=== PATIENT | male | born 1980 | race Caucasian/White ===

== ENCOUNTER 2018-10-01 07:21 | Day surgery (SDC) | payer BC ==
[2018-10-01] VITALS (10 sets, daily range): BP systolic 116–130; BP diastolic 71–84
[~2018-10-01] VITALS: Ht 167.6 cm; Wt 87.3 kg
[~2018-10-01 07:21] MED LIST: BUPR150T14 PO; CITA40TA11 PO; LORA10TA7 PO; PANT40TA3 PO
[2018-10-01] MEDS ORDERED: ceFAZolin 2 GM/50 ML NS 50 ML IV ONE (07:30)
--- OUTSIDE RECORDS SUMMARY | 2018-10-01 07:31 | XMS REPORT ---
Author Author [facility]IN FRANKLIN [facility] [place] Address [address] [place] [address] Care Team Providers Care Saas Architect Name Role Phone XIN FRANKLIN Unavailable PROBLEMS Type Condition ICD9-CM Code LCO78-JH Code Onset Dates Condition Status SNOMED Code Problem Low back pain M54.5 Active 221648583 Problem Other chronic pain G89.29 Active 60956407 Problem Irritable bowel syndrome with diarrhea K58.0 Active 055828546 Problem Sigmoid diverticulosis K57.30 Active 764514206 Problem Internal hemorrhoid, bleeding K64.8 Active 65961680 Problem Allergic conjunctivitis, bilateral H10.13 Active 185956935 Problem Depression, unspecified depression type F32.9 Active 60144712 Problem Hypertriglyceridemia E78.1 Active 992278878 Problem Snoring R06.83 Active 06578447 Problem Excessive daytime sleepiness G47.19 Active [id number] ALLERGIES No Information ENCOUNTERS Encounter Location Date Diagnosis [facility] [place] [address] [facility] [id number] [place] [id number] Feb, [facility] [place] [address] [facility] [id number] [place] [id number] Jan, Irritable bowel syndrome with diarrhea K58.0 and Internal hemorrhoid, bleeding K64.8 [facility] [place] [address] [facility] [id number] [place] [id number] Dec, Irritable bowel syndrome with diarrhea K58.0 [facility] [place] [address] [facility] [id number] [place] [id number] Sep, [facility] [place] [address] [facility] [id number] [place] [id number] Sep, Irritable bowel syndrome with diarrhea K58.0 ; Low back pain M54.5 and Excessive daytime sleepiness G47.19 [facility] [place] [address] [facility] [id number] [place] [id number] Sep, [facility] [address] [facility] [id number] [place] [id number] Aug, [facility] [place] [address] [facility] [id number] [place] [id number] Jul, Excessive daytime sleepiness G47.19 [facility] [place] [address] [id number] [place] [id number] Jul, Excessive daytime sleepiness G47.19 [facility] [place] [address] [place], [place] [id number] [place] [id number] Jul, Allergic conjunctivitis, bilateral H10.13 and Snoring R06.83 [facility] [place] [address] [place], [place] [id number] [id number] June, Snoring R06.83 and Excessive daytime sleepiness G47.19 [facility] [place] [address] [place], [place] [id number] [place] [id number] May, Irritable bowel syndrome with diarrhea K58.0 and Low back pain M54.5 [facility] [place] [address] [place], [place] [id number] [place] [id number] Mar, [facility] [place] [address] [place] [id number] [place] [id number] Feb, Irritable bowel syndrome with diarrhea K58.0 [facility] [place] [address] [place] [id number] [id number] Jan, Irritable bowel syndrome with diarrhea K58.0 ; Low back pain M54.5 ; Depression, unspecified depression type F32.9 and Hypertriglyceridemia E78.1 [facility] [place] [address] [place], [place] [id number] [place] [id number] Dec, [facility] [place] [address] [place] [id number] [id number] Dec, Pain of right thumb M79.644 IMMUNIZATIONS No Known Immunizations SOCIAL HISTORY Never Assessed REASON FOR VISIT Rx request PLAN OF CARE VITAL SIGNS MEDICATIONS Unknown Medications RESULTS No Results PROCEDURES No Known procedures INSTRUCTIONS MEDICATIONS ADMINISTERED No Known Medications MEDICAL (GENERAL) HISTORY Type Description Date Medical History irritable bowel syndrome Medical History depression Medical History MRSA neck Medical History Kidney stones Surgical History rotator cuff tear repair 2007 Surgical History septoplasty 2008 Surgical History tonsillectomy 2011 Surgical History colonoscopy 02/2016 Hospitalization History Hospitalization for surgery only
--- OUTSIDE RECORDS SUMMARY | 2018-10-01 07:31 | XMS REPORT ---
Author Author Husam Rudd Organization [facility] Address [address] [place], [place] [address] Care Team Providers Care Interventional Radiology Technologist Name Role Phone Husam Rudd PCP Unavailable Allergies and Adverse Reactions Name Reaction Notes No known allergies Plan of Treatment Not available. Medications Active Name Start Date Estimated Completion Date SIG Comments dicyclomine 20 mg oral tablet take 1 tablet by oral route 2 times a day Probiotic 10 billion cell oral capsule take 1 capsule by oral route 2 times a day citalopram 40 mg oral tablet take 1 tablet (40 mg) by oral route once daily bupropion HCl 75 mg oral tablet take 1 tablet by oral route gabapentin 300 mg oral capsule take 1 capsule by oral route cyclobenzaprine 10 mg oral tablet take 1 tablet (10 mg) by oral route 2 times per day Men's Multi-Vitamin oral tablet take 1 tablet by oral route amoxicillin 500 mg oral capsule 01/18/2016 01/28/2016 take 2 capsules by oral route every 12 hours for 10 days Problem List Description Status Onset Irritable bowel syndrome Active Depression Active Vital Signs Date Time BP-Sys(mm[Hg] BP-Nichelle(mm[Hg]) HR(bpm) RR(rpm) Temp WT HT HC BMI BSA BMI Percentile O2 Sat(%) 01/18/2016 8:35:00 AM 122 mmHg 78 mmHg 94 bpm 16 rpm 97.5 F 181.375 lbs 66 in 29.27 kg/m2 1.96 m2 98 % Social History Name Description Comments Tobacco Never smoker Alcohol Never History of Procedures Not available. Results Summary Not available. History Of Immunizations Not available. History of Past Illness Name Date of Onset Comments Depression Irritable bowel syndrome Lymphadenopathy of right cervical region Jan 18 2016 8:38AM Sinus infection Jan 18 2016 8:38AM Cough Jan 18 2016 8:38AM Sinus pressure Jan 18 2016 8:38AM Payers Insurance Name Company Name Plan Name Plan Number Policy Number Policy Group Number Start Date [employer]BS [facility] [id number] N/A History of Encounters Visit Date Visit Type Provider 01/18/2016 Office visit Husam Rudd APRN
--- OUTSIDE RECORDS SUMMARY | 2018-10-01 07:31 | XMS REPORT ---
Author Author XIN FRANKLIN [facility] [place] Address [address] [place] [address] Care Team Providers Care Brake Repairer Railroad Name Role Phone XIN FRANKLIN Unavailable PROBLEMS Type Condition ICD9-CM Code WMA13-MC Code Onset Dates Condition Status SNOMED Code Problem Low back pain M54.5 Active 999565768 Problem Other chronic pain G89.29 Active 80988729 Problem Irritable bowel syndrome with diarrhea K58.0 Active 556300645 Problem Sigmoid diverticulosis K57.30 Active 260640766 Problem Internal hemorrhoid, bleeding K64.8 Active 35341381 Problem Allergic conjunctivitis, bilateral H10.13 Active 936153979 Problem Depression, unspecified depression type F32.9 Active 93116887 Problem Hypertriglyceridemia E78.1 Active 023811359 Problem Snoring R06.83 Active 65603231 Problem Excessive daytime sleepiness G47.19 Active [id number] ALLERGIES No Information ENCOUNTERS Encounter Location Date Diagnosis [facility] [place] [address] [facility] [id number] [place] [id number] Feb, [facility] [place] [address] [facility] [id number] [place] [id number] Jan, Irritable bowel syndrome with diarrhea K58.0 and Internal hemorrhoid, bleeding K64.8 [facility] [place] [address] [facility] [id number] [place] [id number] Dec, Irritable bowel syndrome with diarrhea K58.0 [facility] [place] [address] [facility] [id number] [place] [id number] Sep, [facility] [place] [address] [facility] [id number] [place] [address] Sep, Irritable bowel syndrome with diarrhea K58.0 ; Low back pain M54.5 and Excessive daytime sleepiness G47.19 [facility] [place] [address] [facility] [id number] [place] [id number] Sep, [facility] [address] [facility] [id number] [place] [id number] Aug, [facility] [place] [address] [facility] [id number] [place] [id number] Jul, Excessive daytime sleepiness G47.19 [facility] [place] [address] [id number] [place] [id number] Jul, Excessive daytime sleepiness G47.19 [facility] [place] [address] [place], [place] [id number] [place] [id number] Jul, Allergic conjunctivitis, bilateral H10.13 and Snoring R06.83 [facility] [place] [address] [place], [place] [id number] [place] [id number] June, Snoring R06.83 and Excessive daytime sleepiness G47.19 [facility] [place] [address] [place], [place] [id number] [place] [id number] May, Irritable bowel syndrome with diarrhea K58.0 and Low back pain M54.5 [facility] [place] [address] [place], [place] [id number] [place] [id number] Mar, [facility] [place] [address] [place] [id number] [place] [id number] Feb, Irritable bowel syndrome with diarrhea K58.0 [facility] [place] [address] [place], [place] [id number] [place] [address] Jan, Irritable bowel syndrome with diarrhea K58.0 ; Low back pain M54.5 ; Depression, unspecified depression type F32.9 and Hypertriglyceridemia E78.1 [facility] [place] [address] [place], [place] [id number] [place] [id number] Dec, [facility] [place] [address] [place] [id number] [place] [id number] Dec, Pain of right thumb M79.644 IMMUNIZATIONS No Known Immunizations SOCIAL HISTORY Never Assessed REASON FOR VISIT Requests return call PLAN OF CARE VITAL SIGNS MEDICATIONS Unknown [...]
--- OUTSIDE RECORDS SUMMARY | 2018-10-01 07:31 | XMS REPORT ---
Author Author [facility]IN FRANKLIN [facility] [place] Address [address] [place] [address] Care Team Providers Care Wood Floor Refinisher Name Role Phone XIN FRANKLIN Unavailable PROBLEMS Type Condition ICD9-CM Code YWO86-UV Code Onset Dates Condition Status SNOMED Code Problem Low back pain M54.5 Active 678598278 Problem Other chronic pain G89.29 Active 61040509 Problem Irritable bowel syndrome with diarrhea K58.0 Active 738457598 Problem Sigmoid diverticulosis K57.30 Active 757083092 Problem Internal hemorrhoid, bleeding K64.8 Active 25902463 Problem Allergic conjunctivitis, bilateral H10.13 Active 277522380 Problem Depression, unspecified depression type F32.9 Active 60913826 Problem Hypertriglyceridemia E78.1 Active 756624010 Problem Snoring R06.83 Active 00959683 Problem Excessive daytime sleepiness G47.19 Active 134308297193 ALLERGIES No Known Allergies ENCOUNTERS Encounter Location Date Diagnosis [facility] [place] [address] [facility] [id number] [place] [id number] Feb, [facility] [place] [address] [id number] [place] [id number] Jan, Irritable bowel syndrome with diarrhea K58.0 and Internal hemorrhoid, bleeding K64.8 [facility] [place] [address] [facility] [id number] [place] [id number] Dec, Irritable bowel syndrome with diarrhea K58.0 [facility] [place] [address] [facility] [id number] [place] [id number] Sep, [facility] [place] [address] [id number] [place] [id number] Sep, Irritable bowel syndrome with diarrhea K58.0 ; Low back pain M54.5 and Excessive daytime sleepiness G47.19 [facility] [place] [address] [facility] [id number] [place] [id number] Sep, [place] [address] [id number] [place] [id number] Aug, [facility] [place] [address] [id number] [place] [id number] Jul, Excessive daytime sleepiness G47.19 [facility] [place] [address] [facility] [address] [id number] [place] [id number] Jul, Excessive daytime sleepiness G47.19 [facility] [place] [address] [id number] [place] [id number] Jul, Allergic conjunctivitis, bilateral H10.13 and Snoring R06.83 [facility] [place] [address] [id number] [place] [address] June, Snoring R06.83 and Excessive daytime sleepiness G47.19 [facility] [place] [address] [id number] [place] [id number] May, Irritable bowel syndrome with diarrhea K58.0 and Low back pain M54.5 [facility] [place] [address] [id number] [place] [id number] Mar, [facility] [place] [id number] [place] [id number] Feb, Irritable bowel syndrome with diarrhea K58.0 [facility] [place] [address]00565100[facility] [place] [id number] Jan, Irritable bowel syndrome with diarrhea K58.0 ; Low back pain M54.5 ; Depression, unspecified depression type F32.9 and Hypertriglyceridemia E78.1 [facility] [place] [address] [id number] [place] [address] Dec, [facility] [place] [address] [id number] [place] [id number] Dec, Pain of right thumb M79.644 IMMUNIZATIONS No Known Immunizations SOCIAL HISTORY Never Assessed REASON FOR VISIT IBS flare up since [facility] [place] PLAN OF CARE Activity Details Follow Up prn Reason:acute VITAL SIGNS Height 66 in 2017-01-30 Weight 180.0 lbs 2017-01-30 Temperature 98.1 degrees Fahrenheit 2017-01-30 Heart Rate 90 bpm 2017-01-30 Respiratory Rate 18 2017-01-30 BMI 29.05 kg/m2 2017-01-30 Blood pressure systolic 120 mmHg 2017-01-30 Blood pressure diastolic 72 mmHg 2017-01-30 MEDICATIONS Medication Instructions Dosage Frequency Start Date End Date Duration Status Celecoxib 100 mg Orally Twice a day 1 capsule with food 12h Dec, June, 30 day(s) Active Citalopram Hydrobromide 40 MG Orally Once a day 1 tablet 24h Active BuPROPion HCl 150 MG Orally 1 1 Active Probiotic - Active Viberzi 100 mg Orally Twice a day 1 tablet with food 12h Feb, 30 days Active RESULTS Name Result Date Reference Range HEMOCCULT (IN HOUSE) 2017-01-30 RESULTS positive Control pos Lot # [id number] Exp date 07/2017 PROCEDURES Procedure Date Ordered Result Body Site TEST FOR BLOOD, FECES Jan 30, 2017 INSTRUCTIONS MEDICATIONS ADMINISTERED No Known Medications MEDICAL (GENERAL) HISTORY Type Description Date Medical History irritable bowel syndrome Medical History depression Medical History MRSA neck Medical History Kidney stones Surgical History rotator cuff tear repair 2007 Surgical History septoplasty 2008 Surgical History tonsillectomy 2011 Surgical History colonoscopy 02/2016 Hospitalization History Hospitalization for surgery only
--- OUTSIDE RECORDS SUMMARY | 2018-10-01 07:32 | XMS REPORT ---
Author Author [facility]IN FRANKLIN [facility] [place] Address [address] [place] [address] Care Team Providers Care Chief Enterprise Architect Name Role Phone XIN FRANKLIN Unavailable PROBLEMS Type Condition ICD9-CM Code JLY15-QU Code Onset Dates Condition Status SNOMED Code Problem Low back pain M54.5 Active 217570214 Problem Other chronic pain G89.29 Active 28633710 Problem Irritable bowel syndrome with diarrhea K58.0 Active 306416754 Problem Sigmoid diverticulosis K57.30 Active 612773231 Problem Internal hemorrhoid, bleeding K64.8 Active 45715123 Problem Allergic conjunctivitis, bilateral H10.13 Active 412213716 Problem Depression, unspecified depression type F32.9 Active 67355806 Problem Hypertriglyceridemia E78.1 Active 376636711 Problem Snoring R06.83 Active 36208449 Problem Excessive daytime sleepiness G47.19 Active 999766122954 ALLERGIES No Information ENCOUNTERS Encounter Location Date Diagnosis [facility] [place] [address] [facility] [id number] [place] [id number] Feb, [facility] [place] [address] [facility] [id number] [place] [id number] Jan, Irritable bowel syndrome with diarrhea K58.0 and Internal hemorrhoid, bleeding K64.8 [facility] [place] [address] [facility] [id number] [place] [id number] Dec, Irritable bowel syndrome with diarrhea K58.0 [facility] [place] [address] [facility] [id number] [place] [id number] Sep, [facility] [place] [address] [facility] [id number] [place] [address] Sep, Irritable bowel syndrome with diarrhea K58.0 ; Low back pain M54.5 and Excessive daytime sleepiness G47.19 [facility] [place] [address] [facility] [id number] [place] [address] Sep, [facility] [address] [facility] [id number] [place] [id number] Aug, [facility] [place] [address] [id number] [place] [id number] Jul, Excessive daytime sleepiness G47.19 [facility] [place] [address] [id number] [place] [id number] Jul, Excessive daytime sleepiness G47.19 [facility] [place] [address] [id number] [place] [address] Jul, Allergic conjunctivitis, bilateral H10.13 and Snoring R06.83 [facility] [place] [address] [id number] [place] [address] June, Snoring R06.83 and Excessive daytime sleepiness G47.19 [facility] [place] [address] [place], [place] [id number] [place] [address] May, Irritable bowel syndrome with diarrhea K58.0 and Low back pain M54.5 [facility] [place] [address] [place], [place] [id number] [id number] Mar, [facility] [place] [facility] [address]00565100[facility] [address] Feb, Irritable bowel syndrome with diarrhea K58.0 [facility] [place] [address] [place], [place] [id number] [address] Jan, Irritable bowel syndrome with diarrhea K58.0 ; Low back pain M54.5 ; Depression, unspecified depression type F32.9 and Hypertriglyceridemia E78.1 [facility] [place] [address] [place], [place] [id number] [place] [id number] Dec, [facility] [place] [address] [place], [place] [id number] [id number] Dec, Pain of right thumb M79.644 IMMUNIZATIONS No Known Immunizations SOCIAL HISTORY Never Assessed REASON FOR VISIT Lab (walk-in). BEV Bob PLAN OF CARE VITAL SIGNS MEDICATIONS Unknown Medications RESULTS No Results PROCEDURES Procedure Date Ordered Result Body Site ROUTINE VENIPUNCTURE 2016-08-18 N/A ASSAY THYROID STIM HORMONE August 18, 2016 COMPREHEN METABOLIC PANEL August 18, 2016 INSTRUCTIONS MEDICATIONS ADMINISTERED No Known Medications MEDICAL (GENERAL) HISTORY Type Description Date Medical History irritable bowel syndrome Medical History depression Medical History MRSA neck Medical History Kidney stones Surgical History rotator cuff tear repair 2007 Surgical History septoplasty 2008 Surgical History tonsillectomy 2011 Surgical History colonoscopy 02/2016 Hospitalization History Hospitalization for surgery only
--- OUTSIDE RECORDS SUMMARY | 2018-10-01 07:32 | XMS REPORT ---
Author Author [facility]IN FRANKLIN [facility] [place] Address [address] [place] [address] Care Team Providers Care Associate Counsel Name Role Phone XIN FRANKLIN Unavailable PROBLEMS Type Condition ICD9-CM Code ZQY19-DC Code Onset Dates Condition Status SNOMED Code Problem Low back pain M54.5 Active 660371540 Problem Other chronic pain G89.29 Active 67883191 Problem Irritable bowel syndrome with diarrhea K58.0 Active 993089416 Problem Sigmoid diverticulosis K57.30 Active 429078429 Problem Internal hemorrhoid, bleeding K64.8 Active 84227774 Problem Allergic conjunctivitis, bilateral H10.13 Active 304835655 Problem Depression, unspecified depression type F32.9 Active 02394410 Problem Hypertriglyceridemia E78.1 Active 693607711 Problem Snoring R06.83 Active 18450232 Problem Excessive daytime sleepiness G47.19 Active 258281548416 ALLERGIES No Information ENCOUNTERS Encounter Location Date Diagnosis [facility] [place] [address] [facility] [id number] [place] [id number] Feb, [facility] [place] [address] [facility] [id number] [place], [place] [id number] Jan, Irritable bowel syndrome with diarrhea K58.0 and Internal hemorrhoid, bleeding K64.8 [facility] [place] [address] [facility] [id number] [place] [id number] Dec, Irritable bowel syndrome with diarrhea K58.0 [facility] [place] [address] [facility] [id number] [place] [id number] Sep, [facility] [place] [address] [facility] [id number] [place] [address] Sep, Irritable bowel syndrome with diarrhea K58.0 ; Low back pain M54.5 and Excessive daytime sleepiness G47.19 [facility] [place] [address] [facility] [id number] [place] [id number] Sep, [facility] [address] [facility] [id number] [place] [address] Aug, [facility] [place] [address] [facility] [id number] [place] [id number] Jul, Excessive daytime sleepiness G47.19 [facility] [place] [address] [id number] [place] [id number] Jul, Excessive daytime sleepiness G47.19 [facility] [place] [address] [id number] [place] [address] Jul, Allergic conjunctivitis, bilateral H10.13 and Snoring R06.83 [facility] [place] [address] [id number] [place] [id number] June, Snoring R06.83 and Excessive daytime sleepiness G47.19 [facility] [place] [address] [id number] [place] [id number] May, Irritable bowel syndrome with diarrhea K58.0 and Low back pain M54.5 [facility] [place] [address] [place] [id number] [id number] Mar, [facility] [place] [address] [id number] [facility] [id number] Feb, Irritable bowel syndrome with diarrhea K58.0 [facility] [place] [address] [place] [id number] [id number] Jan, Irritable bowel syndrome with diarrhea K58.0 ; Low back pain M54.5 ; Depression, unspecified depression type F32.9 and Hypertriglyceridemia E78.1 [facility] [place] [address] [place], [place] [id number] [place] [id number] Dec, [facility] [place] [address] [id number] [place] [id number] Dec, Pain of right thumb M79.644 IMMUNIZATIONS No Known Immunizations SOCIAL HISTORY Never Assessed REASON FOR VISIT Celebrex/Baclofen PLAN OF CARE VITAL SIGNS MEDICATIONS Medication Instructions Dosage Frequency Start Date End Date Duration Status Celebrex 100 mg Orally twice a day 1 capsule with food 12h Sep, Nov, 30 day(s) Active Baclofen 10 mg Orally every 8 hrs as needed 1 tablet with food or milk Sep, Nov, 30 day(s) Active RESULTS No Results PROCEDURES No Known procedures [...]
--- OUTSIDE RECORDS SUMMARY | 2018-10-01 07:32 | XMS REPORT ---
Author Author [facility] FRANKLIN [facility] [place] Address [address] [place] [address] Care Team Providers Care Welding Manager Name Role Phone XIN FRANKLIN Unavailable PROBLEMS Type Condition ICD9-CM Code WDU84-ZU Code Onset Dates Condition Status SNOMED Code Problem Low back pain M54.5 Active 194375014 Problem Other chronic pain G89.29 Active 47635148 Problem Irritable bowel syndrome with diarrhea K58.0 Active 259309337 Problem Sigmoid diverticulosis K57.30 Active 503087653 Problem Internal hemorrhoid, bleeding K64.8 Active 44230395 Problem Allergic conjunctivitis, bilateral H10.13 Active 564144183 Problem Depression, unspecified depression type F32.9 Active 84988448 Problem Hypertriglyceridemia E78.1 Active 906378086 Problem Snoring R06.83 Active 26139889 Problem Excessive daytime sleepiness G47.19 Active [id number] ALLERGIES No Information ENCOUNTERS Encounter Location Date Diagnosis [facility] [place] [address] [facility] [id number] [place] [id number] Feb, [facility] [place] [address] [facility] [id number] [place] [id number] Jan, Irritable bowel syndrome with diarrhea K58.0 and Internal hemorrhoid, bleeding K64.8 [facility] [place] [address] [facility] [id number] [place] [id number] Dec, Irritable bowel syndrome with diarrhea K58.0 [facility] [place] [address] [facility] [id number] [place] [id number] Sep, [facility] [place] [address] [facility] [id number] [place] [id number] Sep, Irritable bowel syndrome with diarrhea K58.0 ; Low back pain M54.5 and Excessive daytime sleepiness G47.19 [facility] [place] [address] [facility] [id number] [place] [id number] Sep, [facility] [address] [facility] [id number] [place] [id number] Aug, [facility] [place] [address] [facility] [id number] [place] [id number] Jul, Excessive daytime sleepiness G47.19 [facility] [place] [address] [id number] [place] [id number] Jul, Excessive daytime sleepiness G47.19 [facility] [place] [address] [place], [place] [id number] [place] [id number] Jul, Allergic conjunctivitis, bilateral H10.13 and Snoring R06.83 [facility] [place] [address] [place], [place] [id number] [place] [id number] June, Snoring R06.83 and Excessive daytime sleepiness G47.19 [facility] [place] [address] [place], [place] [id number] [place] [id number] May, Irritable bowel syndrome with diarrhea K58.0 and Low back pain M54.5 [facility] [place] [address] [place], [place] [id number] [place] [id number] Mar, [facility] [place] [address] [place] [id number] [place] [id number] Feb, Irritable bowel syndrome with diarrhea K58.0 [facility] [place] [address] [place] [id number] [place] [id number] Jan, Irritable bowel syndrome with diarrhea K58.0 ; Low back pain M54.5 ; Depression, unspecified depression type F32.9 and Hypertriglyceridemia E78.1 [facility] [place] [address] [place] [id number] [place] [id number] Dec, [facility] [place] [address] [place], [place] [id number] [place] [id number] Dec, Pain of right thumb M79.644 IMMUNIZATIONS No Known Immunizations SOCIAL HISTORY Never Assessed REASON FOR VISIT Lab request PLAN OF CARE VITAL SIGNS MEDICATIONS [...]
--- OUTSIDE RECORDS SUMMARY | 2018-10-01 07:32 | XMS REPORT ---
Author Author XIN FRANKLIN Organization [employer] Address Unknown Phone Unavailable Care Team Providers Care Principle Software Engineer Name Role Phone XIN FRANKLIN CP Unavailable Allergies, Adverse Reactions, Alerts Substance Reaction Event Type N.K.D.A. Info Not Available Non Drug Allergy Problems No Known Problems Medications Medication Code System Code Instructions Start Date End Date Status Dosage Probiotic [facility] [address] - Orally not defined Bentyl [facility] [address]-96 30 mg Orally twice a day 1 tablet BuPROPion HCl [facility] [address]-04 75 MG Orally 1 1 Citalopram Hydrobromide [facility] [address]-79 30 mg Orally Once a day 1 tablet Results No Known Results Summary Purpose [employer] Submission
--- OUTSIDE RECORDS SUMMARY | 2018-10-01 07:32 | XMS REPORT | Continuity of Care Document ---
Author Organization Unknown Address Unknown Phone Unavailable Allergies There is no data. Medications There is no data. Problems Date Dx Coded Attending Type Code Diagnosis Diagnosed By 10/26/2016 W H52.13 Myopia, bilateral 10/26/2016 W H52.223 Regular astigmatism, bilateral 10/27/2016 W H52.13 Myopia, bilateral 10/27/2016 W H52.223 Regular astigmatism, bilateral 11/07/2016 W H52.13 Myopia, bilateral 11/08/2016 W H52.13 Myopia, bilateral 11/10/2016 W H52.13 Myopia, bilateral 11/10/2016 W H52.223 Regular astigmatism, bilateral 11/15/2016 W H52.223 Regular astigmatism, bilateral 12/06/2017 W H52.13 Myopia, bilateral 12/06/2017 W H52.223 Regular astigmatism, bilateral 12/12/2017 W H52.13 Myopia, bilateral 12/12/2017 W H52.223 Regular astigmatism, bilateral 12/12/2017 W H52.13 Myopia, bilateral 12/12/2017 W H52.223 Regular astigmatism, bilateral 12/12/2017 W H52.13 Myopia, bilateral 12/12/2017 W H52.223 Regular astigmatism, bilateral 12/12/2017 W H52.13 Myopia, bilateral 12/12/2017 W H52.223 Regular astigmatism, bilateral 12/12/2017 W H52.13 Myopia, bilateral 12/12/2017 W H52.223 Regular astigmatism, bilateral Procedures Code Description [place] [address] EYE EXAM, NEW PATIENT 10/26/2016 42390 REFRACTION 10/26/2016 V2521 Cntct lens hydrophilic toric 10/26/2016 35208 Contact Lens Fittting 11/03/2016 27945 SPECIAL SERVICE/PROC/REPORT 11/10/2016 V2521 Cntct lens hydrophilic toric 12/01/2016 52523 EYE EXAM T TREATMENT 12/06/2017 77339 REFRACTION 12/06/2017 V2521 Cntct lens hydrophilic toric 12/07/2017 Results There is no data. Encounters ACCT No. Visit Date/Time Discharge Status Pt. Type Provider Facility Loc./Unit Complaint [id number] 01/18/2016 09:52:34 01/18/2016 23:59:59 CLS Outpatient Husam Rudd [id number] 12/07/2017 00:00:00 Document Registration [id number] 12/06/2017 13:45:00 Document Registration [id number] 12/01/2016 00:00:00 Document Registration [id number] 11/10/2016 13:00:00 Document Registration [id number] 11/03/2016 14:00:00 Document Registration [id number] 10/26/2016 13:45:00 Document Registration [id number] 10/26/2016 00:00:00 Document Registration [id number] 03/11/2018 17:02:00 03/11/2018 23:59:59 CLS Outpatient [id number] 01/30/2017 11:40:00 01/30/2017 23:59:59 CLS Outpatient XIN FRANKLIN [facility] [place]
--- OUTSIDE RECORDS SUMMARY | 2018-10-01 07:32 | XMS REPORT ---
Author Author XIN FRANKLIN [facility] [place] Address [address] [place] [address] Care Team Providers Care Casino Dealer Name Role Phone XIN FRANKLIN Unavailable PROBLEMS Type Condition ICD9-CM Code BEH47-BA Code Onset Dates Condition Status SNOMED Code Problem Low back pain M54.5 Active 308291313 Problem Other chronic pain G89.29 Active 03580652 Problem Irritable bowel syndrome with diarrhea K58.0 Active 380903396 Problem Sigmoid diverticulosis K57.30 Active 094780478 Problem Internal hemorrhoid, bleeding K64.8 Active 83861440 Problem Allergic conjunctivitis, bilateral H10.13 Active 903472829 Problem Depression, unspecified depression type F32.9 Active 92666351 Problem Hypertriglyceridemia E78.1 Active 896673666 Problem Snoring R06.83 Active 37628933 Problem Excessive daytime sleepiness G47.19 Active 823278268253 ALLERGIES No Information ENCOUNTERS Encounter Location Date Diagnosis [facility] [place] [address] [facility] [id number] [place] [id number] Feb, [facility] [place] [address] [facility] [id number] [place] [phone] Jan, Irritable bowel syndrome with diarrhea K58.0 and Internal hemorrhoid, bleeding K64.8 [facility] [place] [address] [facility] [id number] [place] [id number] Dec, Irritable bowel syndrome with diarrhea K58.0 [facility] [place] [address] [facility] [id number] [place] [id number] Sep, [facility] [place] [address] [facility] [id number] [place] [id number] Sep, Irritable bowel syndrome with diarrhea K58.0 ; Low back pain M54.5 and Excessive daytime sleepiness G47.19 [facility] [place] [address] [facility] [id number] [place] [id number] Sep, [facility] [address] [facility] [id number] [place] [id number] Aug, [facility] [place] [address] [id number] [place] [id number] Jul, Excessive daytime sleepiness G47.19 [facility] [place] [address] [id number] [place] [id number] Jul, Excessive daytime sleepiness G47.19 [facility] [place] [address] [id number] [place] [id number] Jul, Allergic conjunctivitis, bilateral H10.13 and Snoring R06.83 [facility] [place] [address] [id number] [place] [id number] June, Snoring R06.83 and Excessive daytime sleepiness G47.19 [facility] [place] [address] [place], [place] [id number] [place] [id number] May, Irritable bowel syndrome with diarrhea K58.0 and Low back pain M54.5 [facility] [place] [address] [place] [id number] [id number] Mar, [facility] [place] [address]00565100[facility] [id number] Feb, Irritable bowel syndrome with diarrhea K58.0 [facility] [place] [address] [place], [place] [id number] [id number] Jan, Irritable bowel syndrome with diarrhea K58.0 ; Low back pain M54.5 ; Depression, unspecified depression type F32.9 and Hypertriglyceridemia E78.1 [facility] [place] [address] [place] [id number] [place] [id number] Dec, [facility] [place] [address] [place], [place] [id number] [place] [id number] Dec, Pain of right thumb M79.644 IMMUNIZATIONS No Known Immunizations SOCIAL HISTORY Never Assessed REASON FOR VISIT Medication refill request PLAN OF CARE VITAL SIGNS MEDICATIONS Medication Instructions Dosage Frequency Start Date End Date Duration Status Celecoxib 100 mg Orally Twice a day 1 capsule with food 12h Dec, June, 30 day(s) Active Viberzi 100 mg Orally Twice a day 1 tablet with food 12h Feb, 30 days Active RESULTS No Results PROCEDURES No Known [...]
--- OUTSIDE RECORDS SUMMARY | 2018-10-01 07:32 | XMS REPORT ---
Author Author XIN FRANKLIN [facility] [place] Address [address] [place] [address] Care Team Providers Care Director Nicu Name Role Phone XIN FRANKLIN Unavailable PROBLEMS Type Condition ICD9-CM Code NEU04-IY Code Onset Dates Condition Status SNOMED Code Problem Low back pain M54.5 Active 394696200 Problem Other chronic pain G89.29 Active 72857985 Problem Irritable bowel syndrome with diarrhea K58.0 Active 819389394 Problem Sigmoid diverticulosis K57.30 Active 340104170 Problem Internal hemorrhoid, bleeding K64.8 Active 21256094 Problem Allergic conjunctivitis, bilateral H10.13 Active 941542530 Problem Depression, unspecified depression type F32.9 Active 11976653 Problem Hypertriglyceridemia E78.1 Active 086501141 Problem Snoring R06.83 Active 35867092 Problem Excessive daytime sleepiness G47.19 Active 483438495587 ALLERGIES No Information ENCOUNTERS Encounter Location Date Diagnosis [facility] [place] [address] [facility] [id number] [place] [id number] Feb, [facility] [place] [address] [facility] [id number] [place] [id number] Jan, Irritable bowel syndrome with diarrhea K58.0 and Internal hemorrhoid, bleeding K64.8 [facility] [place] [address] [facility] [id number] [place] [id number] Dec, Irritable bowel syndrome with diarrhea K58.0 [facility] [place] [address] [facility] [id number] [place] [id number] Sep, [facility] [place] [address] [facility] [id number] [place] [id number] Sep, Irritable bowel syndrome with diarrhea K58.0 ; Low back pain M54.5 and Excessive daytime sleepiness G47.19 [facility] [place] [address] [facility] [id number] [place] [id number] Sep, [facility] [address] [facility] [id number] [place] [phone] Aug, [facility] [place] [address] [facility] [id number] [place] [id number] Jul, Excessive daytime sleepiness G47.19 [facility] [place] [address] [id number] [place] [id number] Jul, Excessive daytime sleepiness G47.19 [facility] [place] [address] [place], [place] [id number] [place] [id number] Jul, Allergic conjunctivitis, bilateral H10.13 and Snoring R06.83 [facility] [place] [address] [place], [place] [id number] [place] [id number] June, Snoring R06.83 and Excessive daytime sleepiness G47.19 [facility] [place] [address] [place], [place] [id number] [place] [id number] May, Irritable bowel syndrome with diarrhea K58.0 and Low back pain M54.5 [facility] [place] [address] [place], [place] [id number] [place] [id number] Mar, [facility] [place] [address] [place], [place] [id number] [id number] Feb, Irritable bowel syndrome with diarrhea K58.0 [facility] [place] [address] [place], [place] [address]65100[facility] [id number] Jan, Irritable bowel syndrome with diarrhea K58.0 ; Low back pain M54.5 ; Depression, unspecified depression type F32.9 and Hypertriglyceridemia E78.1 [facility] [place] [address] [place], [place] [id number] [place] [id number] Dec, [facility] [place] [address] [place], [place] [id number] [place] [id number] Dec, Pain of right thumb M79.644 IMMUNIZATIONS No Known Immunizations SOCIAL HISTORY Never Assessed REASON FOR VISIT Refill Viberzi PLAN OF CARE VITAL SIGNS MEDICATIONS Medication Instructions Dosage Frequency Start Date End Date Duration Status Viberzi 100 mg Orally Twice a day 1 tablet with food 12h 30 days Active RESULTS No Results PROCEDURES [...]
--- OUTSIDE RECORDS SUMMARY | 2018-10-01 07:32 | XMS REPORT ---
Author Author XIN FRANKLIN [facility] [place] Address [address] [place] [address] Care Team Providers Care Cableman Name Role Phone XIN FRANKLIN Unavailable PROBLEMS Type Condition ICD9-CM Code ENY00-XU Code Onset Dates Condition Status SNOMED Code Problem Sigmoid diverticulosis K57.30 Active 261345974 Problem Irritable bowel syndrome with diarrhea K58.0 Active 671607060 Problem Low back pain M54.5 Active 925161661 Problem Snoring R06.83 Active 76581299 Problem Allergic conjunctivitis, bilateral H10.13 Active 927545901 Problem Hypertriglyceridemia E78.1 Active 462122218 Problem Other chronic pain G89.29 Active 22811705 Problem Excessive daytime sleepiness G47.19 Active 759702856548 Problem Depression, unspecified depression type F32.9 Active 46850471 ALLERGIES Substance Reaction Event Type Date Status N.K.D.A. Unknown Non Drug Allergy Feb, Unknown SOCIAL HISTORY No smoking Hx information available PLAN OF CARE Activity Details Follow Up 4 Weeks Reason:IBS VITAL SIGNS Height 66 in 2016-03-17 Weight 185.2 lbs 2016-03-17 Temperature 98.2 degrees Fahrenheit 2016-03-17 Heart Rate 97 bpm 2016-03-17 Respiratory Rate 18 2016-03-17 BMI 29.89 kg/m2 2016-03-17 Blood pressure systolic 110 mmHg 2016-03-17 Blood pressure diastolic 64 mmHg 2016-03-17 MEDICATIONS Medication Instructions Dosage Frequency Start Date End Date Duration Status Bentyl 20 MG Orally twice a day 1 tablet 12h Active Probiotic - Active BuPROPion HCl 75 MG Orally 1 1 Active Citalopram Hydrobromide 40 MG Orally Once a day 1 tablet 24h Active Viberzi 100 MG Orally Twice a day 1 tablet with food 12h Feb, Mar, 30 days Active RESULTS No Results PROCEDURES Procedure Date Ordered Related Diagnosis Body Site Office Visit, Est Pt., Level 3 Mar 17, 2016 IMMUNIZATIONS No Known Immunizations
--- OUTSIDE RECORDS SUMMARY | 2018-10-01 07:32 | XMS REPORT ---
Author Author NOEMIXIN Organization [facility] [place] Address [address] [place] [address] Care Team Providers Care Dirt Contractor Name Role Phone XIN FRANKLIN Unavailable PROBLEMS Type Condition ICD9-CM Code BTJ46-GN Code Onset Dates Condition Status SNOMED Code Problem Sigmoid diverticulosis K57.30 Active 391162852 Problem Irritable bowel syndrome with diarrhea K58.0 Active 185324192 Problem Low back pain M54.5 Active 345819020 Problem Snoring R06.83 Active 51706692 Problem Allergic conjunctivitis, bilateral H10.13 Active 608643454 Problem Hypertriglyceridemia E78.1 Active 963445754 Problem Other chronic pain G89.29 Active 78801347 Problem Excessive daytime sleepiness G47.19 Active 014201624681 Problem Depression, unspecified depression type F32.9 Active 52999009 ALLERGIES No Information SOCIAL HISTORY Never Assessed PLAN OF CARE VITAL SIGNS MEDICATIONS Unknown Medications RESULTS No Results PROCEDURES No Known procedures IMMUNIZATIONS No Known Immunizations MEDICAL (GENERAL) HISTORY Type Description Date Medical History irritable bowel syndrome Medical History depression Medical History MRSA neck Medical History Kidney stones Surgical History rotator cuff tear repair 2007 Surgical History septoplasty 2008 Surgical History tonsillectomy 2011 Surgical History colonoscopy 02/2016 Hospitalization History Hospitalization for surgery only
--- OUTSIDE RECORDS SUMMARY | 2018-10-01 07:32 | XMS REPORT ---
Author Author XIN FRANKLIN Organization [facility] [place] Address [address] [place] [address] Care Team Providers Care Meteorological Engineer Name Role Phone XIN FRANKLIN Unavailable PROBLEMS Type Condition ICD9-CM Code PIM01-NM Code Onset Dates Condition Status SNOMED Code Problem Irritable bowel syndrome with diarrhea K58.0 Active 885512140 Problem Other chronic pain G89.29 Active 56915483 Problem Hypertriglyceridemia E78.1 Active 663780940 Assessment Irritable bowel syndrome with diarrhea K58.0 Jan, Active 405161803 Problem Low back pain M54.5 Active 141157139 Problem Depression, unspecified depression type F32.9 Active 95137185 ALLERGIES Substance Reaction Event Type Date Status N.K.D.A. Unknown Non Drug Allergy Jan, Unknown SOCIAL HISTORY No smoking Hx information available PLAN OF CARE VITAL SIGNS Height 66 in 2016-02-01 Weight 180 lbs 2016-02-01 Heart Rate 74 bpm 2016-02-01 Respiratory Rate 18 2016-02-01 BMI 29.05 kg/m2 2016-02-01 Blood pressure systolic 118 mmHg 2016-02-01 Blood pressure diastolic 72 mmHg 2016-02-01 MEDICATIONS Medication Instructions Dosage Frequency Start Date End Date Duration Status BuPROPion HCl 75 MG Orally 1 1 Active Bentyl 20 MG Orally twice a day 1 tablet 12h Active Citalopram Hydrobromide 40 MG Orally Once a day 1 tablet 24h Active Probiotic - Active RESULTS No Results PROCEDURES Procedure Date Ordered Related Diagnosis Body Site Office Visit, Est Pt., Level 4 Feb 01, 2016 IMMUNIZATIONS No Known Immunizations
--- OUTSIDE RECORDS SUMMARY | 2018-10-01 07:32 | XMS REPORT ---
Author Author XIN FRANKLIN Organization [employer] Address Unknown Phone Unavailable Care Team Providers Care Patent Prosecution Attorney Name Role Phone XIN FRANKLIN CP Unavailable Allergies, Adverse Reactions, Alerts Substance Reaction Event Type N.K.D.A. Info Not Available Non Drug Allergy Problems Problem Type Condition Code Onset Dates Condition Status Assessment Pain of right thumb M79.644 Active Medications Medication Code System Code Instructions Start Date End Date Status Dosage Naproxen [facility] [address]-22 500 MG Orally every 12 hrs Jan 06, 2015 1 tablet as needed Bentyl [facility] [address]-15 30 mg Orally twice a day 1 tablet Citalopram Hydrobromide [facility] [address]-07 30 mg Orally Once a day 1 tablet Procedures Procedure Coding System Code Date Office Visit, New Pt., Level 3 CPT-4 [id number] Jan 06, 2015 Vital Signs Date/Time: Jan 06, 2015 Temperature 98.2 F Weight 174 lbs Height 66 in BMI 28.08 Index Blood Pressure Diastolic 62 mmHg Blood Pressure Systolic 122 mmHg Cardiac Monitoring Heart Rate 84 bpm Results No Known Results Summary Purpose [employer] Submission
[2018-10-01] MEDS ORDERED: LIDOCAINE PF 2% 5 ML (XYLOCAINE) VIAL ONE (07:38)
[2018-10-01] MEDS ORDERED: ROCURONIUM 10 MG/ML 5 ML SYRINGE IV ONE (07:38)
[2018-10-01] MEDS ORDERED: ONDANSETRON 4 MG/2 ML (SDV) Z0FRAN ONE (07:38)
[2018-10-01] MEDS ORDERED: proPOfol 200 MG/20 ML (DIPRIVAN) VIAL IV ONE (07:38)
[2018-10-01] MEDS ORDERED: MIDAZOLAM 2 MG/2 ML (VERSED) VIAL ONE (07:39)
[2018-10-01] MEDS ORDERED: fentaNYL INJECTION 250 MCG/5 ML AMP ONE (07:40)
[2018-10-01] MEDS ORDERED: CATHETER FLUSH 10 ML SYR IV PRN (07:45)
[2018-10-01] MEDS: LACTATED RINGERS 1,000 ML IV PRN ×3 (07:50→13:10)
[2018-10-01] MEDS ORDERED: PHENYLEPHRINE 0.25% NASAL SPR (NEO-SYNEPHRINE) 15 ML NS ONE ×2 (08:28→08:45)
[2018-10-01] MEDS ORDERED: ROPIVACAINE 5MG/ML 30ML VIAL ONE (08:30)
[2018-10-01] MEDS ORDERED: LIDOCAINE 1% INJ 20 ML 20 ML VIAL ONE (08:30)
--- NOTE | 2018-10-01 08:51 | Progress Note-Pre Operative ---
Pre-Operative Progress Note H&P Reviewed The H&P was reviewed, patient examined and no changes noted. 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
[2018-10-01] MEDS ORDERED: LIDOCAINE/EPI 2% 1:100,00 (XYLOCAINE) 20 ML VIAL ONE (09:14)
[2018-10-01] MEDS ORDERED: DEXAMETHASONE 10 MG/ML (DECADRON) 1 ML VIAL ONE ×2 (10:23→14:25)
[2018-10-01] MEDS ORDERED: PHENYLEPHRINE 100 MCG/ML 10 ML (ANESTHESIA) SYR ONE (10:37)
[2018-10-01] MEDS ORDERED: fentaNYL INJECTION 100 MCG/2 ML AMP ONE (12:36)
[2018-10-01] MEDS ORDERED: ceFAZolin INJECTION 2,000 MG ONE (12:50)
[2018-10-01] MEDS ORDERED: CEFAZOLIN IV ONE (12:56)
[2018-10-01] MEDS ORDERED: SEVOFLURANE (ULTANE) 15 ML INHAL SOLN ONE ×2 (13:57→14:34)
[2018-10-01] MEDS ORDERED: GLYCOPYRROLATE 0.2 MG/ML (ROBINUL) 2 ML VIAL ONE (14:00)
[2018-10-01] MEDS ORDERED: NEOSTIGMINE 3 MG/3 ML VIAL ONE (14:00)
[2018-10-01] MEDS ORDERED: HYDROcodone/APAP 7.5MG-325 MG/15 ML (LORTAB) UDC PO PRN (14:30)
[2018-10-01] MEDS ORDERED: morphine INJ 10 MG/ML 1ML (SYR OR VIAL) IVP ONE (14:45)
[2018-10-01] MEDS ORDERED: HYDROmorphone 2 MG/ML VIAL (DILAUDID) IV ONE (14:45)
[2018-10-01] MEDS ORDERED: NS IV 1000 ML 1,000 ML ONE (15:48)
[2018-10-01] MEDS: ONDANSETRON 4 MG/2 ML (SDV) Z0FRAN IVP PRN ×2 (16:35→21:19)
[2018-10-01] MEDS ORDERED: HYDROmorphone 2 MG/ML VIAL (DILAUDID) IV NR (18:50)
[2018-10-01] MEDS: DEXAMETHASONE 4 MG/ML SDV (DECADRON) IV SCH (20:04)
[2018-10-01] MEDS ORDERED: WATER (STERILE) FOR INJECTION 10 ML ONE (20:29)
[2018-10-01] MEDS ORDERED: ceFAZolin INJECTION 1,000 MG ONE (20:29)
[2018-10-01] MEDS ORDERED: HYDROmorphone 2 MG/ML VIAL (DILAUDID) IV PRN (21:00)
[2018-10-01] MEDS ORDERED: ONDANSETRON 4 MG/2 ML (SDV) Z0FRAN IVP PRN (21:15)
[2018-10-01] MEDS: ceFAZolin INJECTION 1,000 MG in WATER (STERILE) FOR INJECTION 10 ML IV SCH (21:20)
[2018-10-02] VITALS: BP 107/71
[2018-10-02] MEDS: DEXAMETHASONE 4 MG/ML SDV (DECADRON) IV SCH ×2 (02:19→08:23)
[2018-10-02 04:00] VITALS: BP 132/76
[2018-10-02] MEDS ORDERED: WATER (STERILE) FOR INJECTION 10 ML ONE (05:17)
[2018-10-02] MEDS ORDERED: ceFAZolin INJECTION 1,000 MG ONE (05:17)
[2018-10-02] MEDS: ceFAZolin INJECTION 1,000 MG in WATER (STERILE) FOR INJECTION 10 ML IV SCH (05:55)
[2018-10-02 08:25] VITALS: BP 119/66
--- NOTE | 2018-10-02 10:55 | Anesthesia-General Post-Op ---
General Patient Condition Mental Status/LOC: Same as Preop Cardiovascular: Satisfactory Nausea/Vomiting: Absent Respiratory: Satisfactory Pain: Controlled Complications: Absent Post Op Complications Complications None Follow Up Care/Instructions Patient Instructions None needed. Anesthesia/Patient Condition Patient Condition Patient is doing well, no complaints, stable vital signs, no apparent adverse anesthesia problems. Pt states plan for D/C to home once Dr Armando sees him today. OMEGA LR DO Oct 02, 2018 10:55
[2018-10-02 12:45] VITALS: BP 108/69
--- NOTE | 2018-10-25 14:12 | OPERATIVE REPORT ---
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 SURGEON: Dr. Dianne Irving. [employer] TR[employer] DRIVER: Cathleen . PROCEDURE: 1. Advancement with two pieces. 2. Bilateral sagittal split ramus osteotomy. ANESTHESIA: General endotracheal. There were no complications. BLOOD LOSS: 500 mL URINE OUTPUT DURING THE SURGERY: 450 mL. FLUIDS: 2.3 liters of crystalloid. Instrument, needle and sponge count were correct x2. HISTORY OF PRESENT ILLNESS AND INDICATION FOR PROCEDURE: The patient is a 37-year-old essentially healthy white male, who presents upon referral from his nurse examiner, Dr. Irene Schultz, which case he has maxillary constriction as well as anterior open bite. Also, he has mandibular hypoplasia with approximately 8 mm discrepancy in his upper and lower jaws. After speaking extensively with both Dr. Schultz and the patient, it was determined he would best be served by having LeFort 1 two-piece with advancement and impaction in the posterior maxilla and doing a widening of his posterior maxilla as well and then a bilateral sagittal split ramus osteotomy advancement of approximately 10 mm. I had seen the patient for preoperative evaluation and examination. He was also allowed the opportunity to answer questions when he spoke extensively on the fact that during this procedure he can have damage to his inferior alveolar nerve either unilaterally or bilaterally. He was allowed to ask questions, they were answered, then he proceeded to elect to have the surgery at time. DESCRIPTION OF PROCEDURE: The patient was taken to the operating room and placed in the operatory table. The appropriate monitors were placed. Anesthesia was induced via nasotracheal intubation without difficulty. Once this was secured, the surgeon left the room, scrubbed, returned, donned sterile gowns and gloves and then prepped and draped the patient in the usual standard sterile fashion. After this, we deposited local anesthesia and maxillary infiltration as well as bilateral mandibular blocks. We then used a Bovie electrocautery to access the lateral aspect of the mandible and then also used a periosteal elevator to dissect and release the tissue on the medial side of the mandible, identifying the lingula bilaterally on the mandible and the medial aspect. After this, he used a side cutting clark on a rotary handpiece and then made our medial cut stopping at the lateral cortex, continued this down the external oblique line and then made our osteotomy cut through the lateral aspect of the cortex down to the inferior border bilaterally. At this point, we inserted osteotome to make sure our cuts were indeed complete and that mandible was split as planned. We then turned our attention to the maxilla after elevating a full thickness mucoperiosteal flap from the first molar to the first molar. We were then able to elevate a full thickness flap, removing the periosteum back to the maxillary and zygomatic buttress, also along the inferior floor of the nose and the lateral aspect of the nasal passage. We then marked making our reference adams on the anterior maxilla as well as identified we are going to make our osteotomy 25 mm above the first molar cusp and 35 mm above the canine cusp bilaterally. We then excised to the anterior wall of the maxilla and lateral aspect of the nose with a medial wall of the sinus with a reciprocating saw bilaterally, used a nasal septal osteotome to remove the cartilaginous and bony septum. I then used an osteotome to excise back to the tuberosity bilaterally. After this, we were able to mobilize and down fracture the maxilla without difficulty. We then removed any interferences on the medial wall of the sinus, identified the greater palatine artery and removed any interferences there and we were then able to take a round clark and split the maxilla. As it was distracted inferiorly, then used an osteotome to make our incision through the anterior wall or anterior portion of the maxilla between teeth 8 and 9. At this point, we then sectioned the arch wire. After this, we are able to completely mobilize the maxilla and into 2 pieces, we then distracted the maxilla, removed approximately 6 mm of posterior vertical height bilaterally. I then placed the patient into the maxillary splint and wired it together distracting the posterior aspect of the maxilla, then placed the transitional splint, again checked our reference markers to make sure that we had indeed impact the maxilla approximately 6 mm posteriorly and winded approximately 5 mm. After this, we placed him with the intermediate splint, checked our references one more time and placed four plates, two in the posterior and two in the maxillary buttress and two in the piriform rim region with 2 screws in the proximal and 2 in the distal segment. After this was completed, we removed the patient from intermaxillary fixation, removed the transitional splint and then went ahead and completed our sagittal split osteotomies using an osteotome and a periosteal elevator. After this, we were able to visualize the inferior alveolar nerve bilaterally, it was indeed undamaged. At this point, we distracted the distal segment of the mandible, placed it into the final splint, make sure that we had mobilization without any interferences of the proximal segment and then with a transcutaneous technique, we were able to place three screws in the posterior aspect in the retromolar region bilaterally of the mandible. After this, we removed him from intermaxillary fixation and checked to make sure that we had passive occlusion into the splint and then copiously irrigated with normal saline and then closed the intraoral incisions with 4-0 Vicryl in the mandible bilaterally and 4-0 chromic in the maxilla. We did a V-Y closure in the anterior maxilla after doing an alar cinch suture with 2-0 Mersilene. Once this was completed, we then closed the skin with 6-0 Prolene bilaterally. After this, we completed our procedure. We placed a throat pack prior to starting the procedure, this was removed. We then dressed the patient with postoperative dressings. This completed our procedure. He was then allowed to emerge from his general anesthetic. He was then extubated in the operating room and transported to the recovery room and assessed to have stable vital signs, breathing spontaneously with the pulse ox of 99%. Job ID: [id number] DocumentID: [id number] Dictated Date: 10/25/2018 08:43:03 Nutrition Services Associate Date: 10/25/2018 14:12:08 Dictated By: DIANNE IRVING DDS
== END 2018-10-02 13:55 | disposition home or self-care (01) ==
LOC: SDC 07:21 → 4TH 15:30 → SDC 10-02 13:55
PROVIDERS: ATTEND Specialist
DX: M26.03 Mandibular hyperplasia (principal); M26.01 Maxillary hyperplasia; K21.9 Gastro-esophageal reflux disease without esophagitis; G47.33 Obstructive sleep apnea (adult) (pediatric); F41.9 Anxiety disorder, unspecified; F32.9 Major depressive disorder, single episode, unspecified; Z99.89 Dependence on other enabling machines and devices; Z79.899 Other long term (current) drug therapy
CPT/HCPCS: 94760